=== PATIENT | female | born 1990 | race Two or more races ===

== ENCOUNTER 2023-01-15 15:17 | Outpatient (CLI) | payer OTHER | END 2023-01-15 17:18 | disposition home or self-care (01) | LOC: PRENATAL 15:17 | PROVIDERS: ATTEND Obstetrics & Gynecology Maternal & Fetal Medicine | DX: O36.80X0 Pregnancy with inconclusive fetal viability, not applicable or unspecified (principal); Z36.9 Encounter for antenatal screening, unspecified; Z3A.13 13 weeks gestation of pregnancy ==

== ENCOUNTER 2023-02-14 11:11 | Emergency (ER) | payer OTHER ==
[~2023-02-14] VITALS: Ht 165.1 cm; Wt 63.5 kg
[2023-02-14] MEDS ORDERED: PRENA1 TRUE CO1 EACH (11:27)
== END 2023-02-14 15:05 | disposition home or self-care (01) ==
LOC: ER 11:11
PROVIDERS: General Practice
DX: O26.849 Uterine size-date discrepancy, unspecified trimester (principal); O26.899 Other specified pregnancy related conditions, unspecified trimester; Z3A.17 17 weeks gestation of pregnancy

== ENCOUNTER 2023-02-28 08:16 | Outpatient (CLI) | payer OTHER ==
[~2023-02-28 08:16] MED LIST: PRENA1 TRUE CO1 EACH
== END 2023-02-28 10:01 | disposition home or self-care (01) ==
LOC: PRENATAL 08:16
PROVIDERS: ATTEND Obstetrics & Gynecology Maternal & Fetal Medicine
DX: O35.3XX0 Maternal care for (suspected) damage to fetus from viral disease in mother, not applicable or unspecified (principal); O44.00 Complete placenta previa NOS or without hemorrhage, unspecified trimester; O26.879 Cervical shortening, unspecified trimester; Z3A.19 19 weeks gestation of pregnancy

== ENCOUNTER 2023-03-12 11:08 | Outpatient (CLI) | payer OTHER | END 2023-03-12 16:00 | disposition home or self-care (01) | LOC: PRENATAL 11:08 | PROVIDERS: ATTEND Obstetrics & Gynecology Maternal & Fetal Medicine | DX: O26.879 Cervical shortening, unspecified trimester (principal); Z3A.21 21 weeks gestation of pregnancy ==

== ENCOUNTER 2023-03-26 07:57 | Outpatient (CLI) | payer OTHER | END 2023-03-26 09:32 | disposition home or self-care (01) | LOC: PRENATAL 07:57 | PROVIDERS: ATTEND Obstetrics & Gynecology Maternal & Fetal Medicine | DX: O26.849 Uterine size-date discrepancy, unspecified trimester (principal); O26.879 Cervical shortening, unspecified trimester; Z3A.23 23 weeks gestation of pregnancy ==

== ENCOUNTER 2023-05-07 12:33 | Outpatient (CLI) | payer OTHER | END 2023-05-07 12:35 | disposition home or self-care (01) | LOC: PRENATAL 12:33 | PROVIDERS: ATTEND Obstetrics & Gynecology Maternal & Fetal Medicine | DX: O26.849 Uterine size-date discrepancy, unspecified trimester (principal); O26.879 Cervical shortening, unspecified trimester; Z3A.29 29 weeks gestation of pregnancy ==

== ENCOUNTER 2023-06-11 09:40 | Outpatient (CLI) | payer OTHER | END 2023-06-11 09:41 | disposition home or self-care (01) | LOC: PRENATAL 09:40 | PROVIDERS: ATTEND Obstetrics & Gynecology Maternal & Fetal Medicine | DX: O26.849 Uterine size-date discrepancy, unspecified trimester (principal); O36.8199 Decreased fetal movements, unspecified trimester, other fetus; O26.879 Cervical shortening, unspecified trimester; Z3A.34 34 weeks gestation of pregnancy ==

== ENCOUNTER 2023-07-21 05:23 | Inpatient (IN) | payer OTHER ==
[~2023-07-21] VITALS: Ht 165.1 cm; Wt 68.0 kg
[2023-07-21 06:30] LABS: URINE APPEARANCE Clear; URINE BILIRRUBIN Negative (NEGATIVE); URINE BLOOD Negative; URINE COLOR Yellow; URINE GLUCOSE Negative (NEGATIVE); URINE LEUKOCYTE Trace; URINE NITRATE Negative; URINE PROTEIN Negative (NEGATIVE); URINE UROBILINOGEN 0.2 E.U./dl
[2023-07-21 06:34] LABS: URINE BACTERIA 337.5 uL (0.0-1933); URINE EPITHELIAL CELLS 19.4 uL (0.0-38.8); URINE RBC 7.3 uL (0.0-20.8); URINE WBC 38.3 uL (0.0-23.2)
[2023-07-21 06:58] LABS: HEMATOCRIT 33.4 % (36.0-45.00); HEMOGLOBIN 11.3 g/dL (12.0-15.00); MEAN CORPUSCULAR HEMOGLOBIN 28.4 pg (27.00-32.0); MEAN CORPUSCULAR HGB CONC 33.9 g/dl (32.0-36.0); PLATELET COUNT 230 K/uL (150-450); RED BLOOD COUNT 3.97 M/uL (4.00-6.00); RED CELL DISTRIBUTION WIDTH 15.5 % (11.5-14.5)
[2023-07-21 07:02] LABS: CALCIUM 8.8 mg/dL (8.5-10.1); CREATININE SERUM 0.78 mg/dL (0.55-1.02); GFR 85.05
[2023-07-21 08:15] LABS: INR < 0.93; PARTIAL THROMBOPLASTIN TIME 27.9 SECONDS (22.0-34.0); PROTHROMBIN TIME 9.3 SECONDS (9.0-11.5)
[2023-07-21] MEDS ORDERED: OXYTOCIN 500 ML IV SCH (08:45)
[2023-07-22] MEDS ORDERED: ERYTHROMYCIN BASE 1 GM TUBE OP ONE (11:16)
[2023-07-22] MEDS ORDERED: CHLORHEXIDINE GLUCONATE 120 ML BOTTLE TOP ONE (11:16)
[2023-07-22] MEDS ORDERED: MORPHINE SULFATE 4 MG/ML VIAL IV STA (12:44)
[2023-07-22] MEDS ORDERED: OXYTOCIN 10 UNITS/ML VIAL ONE (17:32)
[2023-07-22] MEDS ORDERED: ERYTHROMYCIN BASE 3.5 GM OINT...G. OP ONE (17:33)
[2023-07-22] MEDS ORDERED: MORPHINE SULFATE 4 MG/ML VIAL IV PRN (19:45)
[2023-07-22] MEDS ORDERED: OXYTOCIN 1,000 ML IV SCH (20:00)
[2023-07-22] MEDS ORDERED: RINGERS SOLUTION,LACTATED 1,000 ML IV SCH (20:00)
[2023-07-22 21:00] LABS: ABG PH 7.317 (7.35-7.45); ABG pCO2 42.7 mmHg (35-45)
[2023-07-22] MEDS ORDERED: SIMETHICONE 125 MG CAPSULE PO SCH (21:00)
[2023-07-22 21:01] LABS: ABG PO2 24.4 mmHg (80-100); BASE EXCESS -4.6 mmol/l; BICARBONATE 21.4 mmol/l (23-25); SaO2 36.4 %; Tco2 22.7 mmol/l; o2 21 %
[2023-07-22 23:11] LABS: HEMATOCRIT 34.9 % (36.0-45.00); MEAN CELL VOLUME 85.9 fL (80.00-100.00); MEAN CORPUSCULAR HEMOGLOBIN 28.5 pg (27.00-32.0); MEAN CORPUSCULAR HGB CONC 33.2 g/dl (32.0-36.0); PLATELET COUNT 240 K/uL (150-450); RED BLOOD COUNT 4.06 M/uL (4.00-6.00); RED CELL DISTRIBUTION WIDTH 15.3 % (11.5-14.5)
[2023-07-22 23:12] LABS: HEMOGLOBIN 11.6 g/dL (12.0-15.00)
[2023-07-23] MEDS ORDERED: DOCUSATE SODIUM 100MG CAP PO SCH (09:00)
[2023-07-23] MEDS ORDERED: IBUprofen 800 MG TABLET PO PRN (09:00)
== END 2023-07-25 14:03 | disposition home or self-care (01) | DRG 786 ==
LOC: LDR 05:23 → O/R 07-22 18:23 → OB/GYN 07-22 21:01
PROVIDERS: ADMIT Obstetrics & Gynecology; ATTEND Obstetrics & Gynecology
PROC: 4A1HXCZ Monitoring of Products of Conception, Cardiac Rate, External Approach (ICD-10-PCS; 2023-07-21)
PROC: 10D00Z1 Extraction of Products of Conception, Low, Open Approach (ICD-10-PCS; principal; 2023-07-22 17:00)
DX: O62.1 Secondary uterine inertia (principal); O34.33 Maternal care for cervical incompetence, third trimester; Z3A.40 40 weeks gestation of pregnancy; Z37.0 Single live birth; Z20.822 Contact with and (suspected) exposure to COVID-19

== ENCOUNTER 2023-08-01 17:13 | Emergency (ER) | payer OTHER ==
[~2023-08-01] VITALS: Ht 165.1 cm; Wt 63.5 kg
[2023-08-01] MEDS ORDERED: CEFTRIAXONE SODIUM 1,000 MG VIAL IM ONE (19:30)
== END 2023-08-01 21:33 | disposition home or self-care (01) ==
LOC: ER 17:13
DX: R05.8 Other specified cough (principal); O86.01 Infection of obstetric surgical wound, superficial incisional site; H60.93 Unspecified otitis externa, bilateral; Z20.822 Contact with and (suspected) exposure to COVID-19